=== PATIENT | female | born 1990 | race Caucasian/White ===

== ENCOUNTER 2021-09-05 00:32 | Emergency (ER) | payer OTHER, SELFPAY ==
--- NOTE | ~2021-09-05 | XR_ITS ---
EXAMINATION: XR finger 4th LT min 2V DATE: 09/05/2021 00:57 INDICATION: Left hand fourth digit pain and deformity. TECHNIQUE: 4 views of left hand fourth digit were obtained. COMPARISON: None. FINDINGS: There is a spiral fracture of diaphysis of fourth proximal phalanx. The distal fracture fra gment demonstrates 2 mm radial displacement and 6 degrees radial angulation. There is plate and screw fixation of distal radius. Joint spaces are normal. IMPRESSION: 1. Spiral fracture of diaphysis of fourth proximal phalanx. Reviewed, dictated and finalized at location A. 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
[2021-09-05 00:44] VITALS: BP 160/72; PULSE 129; RESP 22; TEMP 36.4; O2SAT 95
--- NOTE | 2021-09-05 01:11 | ED.GENADULT ---
HPI - General Adult General Chief complaint: Wound/Laceration Stated complaint: finger injury Time Seen by Provider: 09/05/21 00:38 History of Present Illness HPI narrative: Patient is a 31-year-old female who presents ER with left fourth digit injury. Patient was walking upstairs when she tripped and fell forwards and struck her finger on the stairs. Sudden onset pain. Has deformity of the finger. No numbness or tingling. She did not strike her head or lose consciousness. Reports limited range of motion due to pain. Patient is very anxious and tearful. Patient is right-handed. 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 Review of Systems Musculoskeletal: Musculoskeletal: Reports arthralgias, Reports joint swelling and Denies muscle cramps Integumentary/Breasts: Skin/Breast: Denies erythema and Denies rash Neurologic: Denies focal weakness and Denies numbness PMFSH Past Medical History Medical History (Updated 09/05/21 @ 01:35 by Tay Conde MD) Anxiety Surgical History Surgical History (Updated 09/05/21 @ 01:13 by Tay Conde MD) H/O left wrist surgery Social History Social History (Updated 09/05/21 @ 01:13 by Tay Conde MD) Smoking status: Never smoker Exam Narrative: GENERAL: Anxious and tearful, and in no acute distress. HEAD: Normocephalic, atraumatic. HEART:Tachycardic and regular. Normal peripheral pulses. EXTREMITIES: Focused exam of the left hand reveals deformity of the left fourth digit. Patient has angulation where the fourth finger is overriding the dorsal aspect of the fifth digit. During digital block patient was able to extend at the fourth MCP/DIP/PIP in response to pain but had difficulty performing these ranges of motion on command due to pain. Sharp touch discrimination intact in left hand when tested with a 21g needle. Normal ROM and strength at the left wrist. Previous surgical scar of left wrist note. Radial pulse intact with normal color of hand. SKIN: Warm, dry, no rash. NEURO: Sharp and soft touch intact in affected hand. Alert and oriented x3. PSYCH: Anxious mood with normal thought content. Course Course Emergency Course: On arrival of the patient was very upset and crying. She was very upset that her boyfriend and children cannot come back to see her. She was informed that there is a 1 person visitor policy and there were 3 people. Due to Covid there is only a one visitor policy. Patient's family then came in through an open door. They were then removed from her room which upset her again. I had a very clear conversation with the patient in which she was informed that it was disrespectful to be violating this policy and that there are people who are actually dying that are still only allowed to have one family member. Patient then underwent digital block of the left fourth digit so that we could perform fracture reduction and stabilization. Patient then grabbed the physician during procedure while a needle was in her risking injury to her finger. She was strongly told not to grab the physician. Patient became upset and decided she wanted to leave AGAINST MEDICAL ADVICE. Discussed with her that we had already performed a digital block and it would be recommended that she stay a few more minutes so she could have her finger reduced and splinted and so we could arrange follow-up. Patient declines the services and she was educated about the risks of leaving AGAINST MEDICAL ADVICE including but not limited to worsening bony injury, potential nerve or tendon injury, possible loss of finger, possible permanent disability, and worsening pain. Patient signed paperwork recognizing these risks. A CD with her imaging had already been requested and images had been pushed to [facility] prior to patient deciding to leave. She did not receive a copy of her images. Vital Signs Vital signs: Vital Signs Temperature 97.5 F L 09/05/21 00:44 Pulse Rate 129 H 09/05/21 00:44 Respiratory Rate 2
[2021-09-05] MEDS: HYDROcodone/acetaminophen (*CRX) 5-325 MG TABLET 1 TAB PO (01:20)
== END 2021-09-05 01:28 | disposition left against medical advice (07) ==
PROVIDERS: Emergency Provider Emergency Medicine
DX: S62.615A Displaced fracture of proximal phalanx of left ring finger, initial encounter for closed fracture (principal); W10.9XXA Fall (on) (from) unspecified stairs and steps, initial encounter
CPT/HCPCS: 73140; 99281; 99283; A9270